=== PATIENT | male | born 1970 | race Hispanic/Latino ===

== ENCOUNTER 2020-01-29 23:31 | Emergency (ER) | payer SELFPAY ==
[2020-01-30 04:28] VITALS: BP 148/84
[2020-01-30] MEDS ORDERED: IBUPROFEN 400 MG TAB PO ONE (04:33)
[2020-01-30] MEDS ORDERED: CLINDAMYCIN 300 MG CAP PO ONE (04:33)
[2020-01-30] MEDS ORDERED: ACETAMINOPHEN 325 MG TAB PO ONE (04:33)
--- NOTE | 2020-01-30 04:34 | Emergency Department Report ---
ED General Adult HPI - General Chief complaint: Extremity Injury, Lower Stated complaint: CELLULITIS PUI?: No Source: patient, RN notes reviewed Mode of arrival: Ambulatory Limitations: No Limitations - History of Present Illness Initial comments: Patient is a 50-year-old obese male, not known to myself previously, visiting from [place], presenting to the ER with a complaint of nontraumatic bilateral lower extremity/anterior tibial and calf redness, pain and swelling, present for 1 week. Denies fever, chills, nausea, vomiting, diarrhea. Also has multiple pustule- like lesions, he is not quite sure where they came from, both in his bilateral lower tibial regions. There is no weakness, numbness. No irritative or obstructive urinary symptoms. Symptoms constant, increased with palpation, range of motion. Decreased with rest. There is occasional radiation onto the right medial thigh when he gets up and walks. There is no spreading of redness in his bilateral thighs -: Gradual, days(s) (7) Location: lower extremity Quality: aching Consistency: constant Improves with: rest Worsens with: movement - Related Data Previous Rx's Medication Instructions Recorded Last Taken Type Acetaminophen [Non-Aspirin Extra 500 mg PO Q6HR PRN #30 tablet 01/30/20 Unknown Rx Strength] Clindamycin [Clindamycin CAP] 300 mg PO Q6H #40 capsule 01/30/20 Unknown Rx Ibuprofen [Motrin] 600 mg PO Q8H PRN #30 tablet 01/30/20 Unknown Rx Triamcinolone 0.1% [Kenalog 0.1% 1 applic TP TID #2 tube 01/30/20 Unknown Rx CREAM] Allergies Allergy/AdvReac Type Severity Reaction Status Date / Time No Known Allergies Allergy Unverified 01/30/20 04:37 ED Review of Systems ROS: Stated complaint: CELLULITIS Other details as noted in HPI Constitutional: denies: fever Respiratory: denies: shortness of breath Cardiovascular: denies: chest pain Gastrointestinal: denies: abdominal pain Musculoskeletal: myalgia Skin: lesions Neurological: denies: weakness, numbness ED Past Medical Hx - Past Medical History Previous Medical History?: No - Surgical History Past Surgical History?: No - Social History Smoking Status: Current Every Day Smoker Substance Use Type: None - Medications Home Medications: Home Medications Medication Instructions Recorded Confirmed Last Taken Type Acetaminophen [Non-Aspirin Extra 500 mg PO Q6HR PRN #30 tablet 01/30/20 Unknown Rx Strength] Clindamycin [Clindamycin CAP] 300 mg PO Q6H #40 capsule 01/30/20 Unknown Rx Ibuprofen [Motrin] 600 mg PO Q8H PRN #30 tablet 01/30/20 Unknown Rx Triamcinolone 0.1% [Kenalog 0.1% 1 applic TP TID #2 tube 01/30/20 Unknown Rx CREAM] ED Physical Exam - General Limitations: No Limitations General appearance: alert, in no apparent distress, obese - Head Head exam: Present: atraumatic, normocephalic - Eye Eye exam: Present: normal appearance, EOMI. Absent: nystagmus - ENT ENT exam: Present: normal exam, normal orophraynx, mucous membranes moist, normal external ear exam - Neck Neck exam: Present: normal inspection, full ROM. Absent: tenderness, meningismus - Respiratory Respiratory exam: Present: normal lung sounds bilaterally. Absent: respiratory distress - Cardiovascular Cardiovascular Exam: Present: regular rate, normal rhythm, normal heart sounds. Absent: bradycardia, tachycardia, irregular rhythm, systolic murmur, diastolic murmur, rubs, gallop - GI/Abdominal GI/Abdominal exam: Present: soft, normal bowel sounds. Absent: distended, tenderness, guarding, rebound, rigid, pulsatile mass - Rectal Rectal exam: Present: deferred - Extremities Exam Extremities exam: Present: full ROM, tenderness (There is bilateral anterior tibial redness. There is bilateral anterior tibial tenderness. There are multiple pustules noted on the bilateral lower extremities. The muscular compartments are soft. Full range of motion to the bilateral hips, knees and ankles. Able to walk with a steady gait. There is no lymphangitic spread or lymphangitis.), normal capillary refill, other (2+ pulses noted in the bilateral upper and lower extremities. There is no palpable cord. negative Homans sign. Muscular compartments are soft. The pelvis is stable.). Absent: calf tenderness - Back Exam Back exam: Present: normal inspection, full ROM. Absent: CVA tenderness (L), paraspinal tenderness, vertebral tenderness - Neurological Exam Neurological exam: Present: alert, oriented X3, normal gait, other (No facial droop. Tongue midline. Extraocular movements intact bilaterally. Facial sensation intact to light touch in V1, V2, V3 distribution bilaterally. 5 and a 5 strength in 4 extremities. Sensation intact to light touch in 4 extremities.). Absent: motor sensory deficit - Psychiatric Psychiatric exam: Present: normal affect, normal mood - Skin Skin exam: Present: warm, rash, erythema ED Course Vital Signs 01/30/20 00:44 Temperature 98.3 F Pulse Rate 101 H Respiratory 18 Rate Blood Pressure 148/84 O2 Sat by Pulse 92 Oximetry ED Medical Decision Making - Lab Data Vital Signs 01/30/20 00:44 Temperature 98.3 F Pulse Rate 101 H Respiratory 18 Rate Blood Pressure 148/84 O2 Sat by Pulse 92 Oximetry - Medical Decision Making Differential diagnosis, including but not limited to: Cellulitis, superinfection, venous stasis Assessment and plan: 50-year-old gentleman with probable cellulitis versus venous stasis. Tachycardia resolved on my exam. He is not systemically ill appearing. He is able to walk with a steady gait and weight-bear without significant difficulty. His muscular compartments are soft, and he is neurovascularly intact. There is no chest pain or shortness of breath. Swelling and redness are symmetric, unlikely to be DVT. Patient suitable for trial of outpatient management. We will start clindamycin, and initiate nonnarcotic pain medicine. In addition, the patient will be given an affordable Rx prescription card. He will be referred to local primary care doctors. We will also discharge with topical steroids in case there is a component of venous stasis. Critical care attestation.: If time is entered above; I have spent that time in minutes in the direct care of this critically ill patient, excluding procedure time. ED Disposition Clinical Impression: Redness and swelling of lower leg Disposition: [id number] TO HOME OR SELFCARE Is pt being admited?: No Does the pt Need Aspirin: No Condition: Stable Instructions: Cellulitis (ED), Stasis Dermatitis (ED) Additional Instructions: Apply warm compresses to the bilateral lower extremities often and frequently. Wash with soap and water at least every 12-24 hours. Take the pain medication, antibiotics as directed. Use the steroid cream as directed. Patient was given an affordable prescription card, which may help with obtaining affordable aguilar prescriptions. Follow-up with a primary care doctor within the next 3 to 5 days. Return to the emergency room right away with new pain, worsening pain, migration of pain, fevers, chills, nausea, vomiting, lethargy, irritability, spreading redness, or new, worsened or different symptoms not present on the initial emergency room evaluation peer Referrals: DAYNA MARTE MD [Staff Physician] - 3-5 Days [facility] [Provider Group] - 3-5 Days
== END 2020-01-30 05:19 | disposition home or self-care (01) ==
LOC: ED 23:31
DX: R22.43 Localized swelling, mass and lump, lower limb, bilateral (principal); M79.604 Pain in right leg; M79.605 Pain in left leg; F17.200 Nicotine dependence, unspecified, uncomplicated; Z79.1 Long term (current) use of non-steroidal anti-inflammatories (NSAID); Z79.2 Long term (current) use of antibiotics; Z79.899 Other long term (current) drug therapy
CPT/HCPCS: 99282